=== PATIENT | male | born 1965 | race Caucasian/White ===

== ENCOUNTER 2020-02-29 11:43 | Emergency (ER) | payer MEDICARE, OTHER ==
[~2020-02-29] VITALS: Ht 177.8 cm; Wt 60.0 kg
[~2020-02-29 11:43] MED LIST: DICL50TA2 PO; DIVA500T2 PO; DULO30CA2 PO; GABA-827 PO; HYDR-826 PO; MELO7.5T31 PO; METH500T7 PO; NAPR220C2 PO; OMEP40CA42 PO; OXYC20TA42 PO; POTA10TA11 PO; TAMS-11 PO; TRAZ50TA66 PO
--- NOTE | 2020-02-29 11:48 | NUR ---
PT REFUSED TRIAGE UNTIL HE CAN CALL HIS GIRLFRIEND. PT AMBULATORY TO AND FROM [facility] PHONE W/ STEADY GAIT, LIGHTLY USING CANE. RESP EVEN & UNLABORED, ABLE TO SPEAK IN COMPLETE SENTENCES. RETURNED TO ED ROOM 24 W/OUT INCIDENT.
--- NOTE | 2020-02-29 11:50 | NUR ---
DR DE GUZMAN AT BS FOR EXAM.
[2020-02-29] MEDS ORDERED: BUPR1PAT20 TP (12:18)
[2020-02-29] MEDS ORDERED: SODIUM CHLORIDE FLUSH 10ML SYR IVF ONE (13:00)
[2020-02-29] MEDS ORDERED: KETOROLAC 30 MG/1 ML IVPush ONE (13:00)
[2020-02-29] MEDS ORDERED: DIPHENHYDRAMINE 50 MG/ML, 1ML IVPush ONE (13:00)
[2020-02-29] MEDS ORDERED: METOCLOPRAMIDE 5 MG/ML, 2ML IVPush ONE (13:00)
[2020-02-29] MEDS ORDERED: SODIUM CHLORIDE 0.9% 1,000ML IVBOLUS ONE (13:00)
[2020-02-29] MEDS ORDERED: METOCLOPRAMIDE 5 MG/ML, 2ML ONE (13:27)
[2020-02-29] MEDS ORDERED: DIPHENHYDRAMINE 50 MG/ML, 1ML ONE (13:27)
[2020-02-29] MEDS ORDERED: KETOROLAC 30 MG/1 ML ONE (13:27)
--- NOTE | 2020-02-29 13:34 | NUR ---
BENADRYL, TORADOL AND REGLAN GIVEN PER EMAR; NS BOLUS INFUSING; IV SITE PATENT. PT RESTING QUIETLY ON GURNEY.
[2020-02-29 14:23] VITALS: BP 116/44
== END 2020-02-29 14:54 | disposition home or self-care (01) ==
LOC: ED 12:37
DX: G44.209 Tension-type headache, unspecified, not intractable (principal); M54.2 Cervicalgia; R55 Syncope and collapse; R94.31 Abnormal electrocardiogram [ECG] [EKG]; I10 Essential (primary) hypertension; K21.9 Gastro-esophageal reflux disease without esophagitis
CPT/HCPCS: 70450; 93005; 96361; 96374; 96375; 99284; J1200; J1885; J2765; J7030

== ENCOUNTER 2020-03-29 16:18 | Emergency (ER) | payer MEDICARE ==
[~2020-03-29 16:18] MED LIST changes: +BUPR1PAT20 TP
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
== END 2020-03-29 16:43 ==
LOC: ED 16:37
DX: F32.9 Major depressive disorder, single episode, unspecified (principal); Z53.21 Procedure and treatment not carried out due to patient leaving prior to being seen by health care provider

== ENCOUNTER 2020-10-07 05:36 | Emergency (ER) | payer MEDICARE ==
[~2020-10-07] VITALS: Ht 175.3 cm; Wt 70.0 kg
[~2020-10-07 05:36] MED LIST changes: +METH-639 PO; -METH500T7 PO
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
[2020-10-07] MEDS ORDERED: LORazepam 1MG TABLET PO ONE (06:00)
[2020-10-07] MEDS ORDERED: LORazepam 2 MG/ML, 1ML ONE (06:01)
[2020-10-07] MEDS ORDERED: LORazepam 2 MG/ML, 1ML IM ONE (06:30)
--- NOTE | 2020-10-07 06:42 | NUR ---
PT UA SENT TO LAB, NAD, DENIES ADDITIONAL QUESTIONS AT THIS TIME. VERBALLY INSTRUCTED ON CATH CARE. PROVIDED RESOURCES FOR CATH CARE. TONIE.
[2020-10-07 06:49] VITALS: BP 152/97
--- NOTE | 2020-10-07 06:54 | NUR ---
REPORT TO ELVIA HURTADO, PT CARE TRANSFERRED AT THIS TIME.
[2020-10-07 06:59] LABS: MICROSCOPIC NOT IND
--- NOTE | 2020-10-07 07:06 | NUR ---
PT REC'VD DISCHARGE INSTRUCTIONS AND EDUCATION. PT ADVISED ABOUT FOLLOW UP. PT HAD NO FURTHER QUESTIONS. PT AMBULATED TO DC AREA, STEADY GAIT.
== END 2020-10-07 07:37 | disposition home or self-care (01) ==
LOC: ED 06:16
DX: N40.1 Benign prostatic hyperplasia with lower urinary tract symptoms (principal); R33.8 Other retention of urine
CPT/HCPCS: 51702; 81003; 96372; 99284; J2060

== ENCOUNTER 2020-10-08 07:33 | Emergency (ER) | payer MEDICARE ==
[~2020-10-08] VITALS: Ht 177.8 cm; Wt 66.0 kg
[2020-10-08 07:42] VITALS: BP 130/83
--- NOTE | 2020-10-08 08:55 | NUR ---
PT TO ROOM FROM LOBBY, GAIT STEADY WITH MARIELLA. REYNALDO STEPHENS AT BEDSIDE TO [place] PT.
--- NOTE | 2020-10-08 09:02 | NUR ---
SCHAEFFER REMOVED WITHOUT DIFFICULTY. REVIEWED DC INSTRUCTIONS WITH PT, UNDERSTANDING VERBALIZED. PT LEFT AMB, GAIT STEADY WITH CANE.
== END 2020-10-08 09:07 | disposition home or self-care (01) ==
LOC: ED 08:49
DX: R33.9 Retention of urine, unspecified (principal); F17.210 Nicotine dependence, cigarettes, uncomplicated
CPT/HCPCS: 99281

== ENCOUNTER 2020-11-02 09:34 | Emergency (ER) | payer MEDICARE ==
[~2020-11-02] VITALS: Ht 177.8 cm; Wt 68.9 kg
[2020-11-02 09:37] VITALS: BP 129/89
--- NOTE | 2020-11-02 10:00 | NUR ---
PT PRESENTS TO ED WITH C/O MIDLINE BACK/NECK PAIN. STATES HE HAS "TITANIUM IN BACK" AND HAS HAD MULTPLE SURGERIES. PT A&O, RESPS EVEN AND UNLABORED, VSS, NADN.
--- NOTE | 2020-11-02 10:27 | NUR ---
PT EDUCATED ON DISCHARGE, VERBALIZED UNDERSTANDING, AMBULATORY TO DISCHARGE WITH STEADY GAIT
== END 2020-11-02 10:30 | disposition home or self-care (01) ==
LOC: ED 09:52
DX: M51.16 Intervertebral disc disorders with radiculopathy, lumbar region (principal); I10 Essential (primary) hypertension
CPT/HCPCS: 99283

== ENCOUNTER 2020-11-21 23:38 | Emergency (ER) | payer MEDICARE ==
[~2020-11-21] VITALS: Ht 177.8 cm; Wt 65.0 kg
[~2020-11-21 23:38] MED LIST changes: -OMEP40CA42 PO; +OMEP40CA8 PO
[2020-11-22] MEDS ORDERED: LIDOCAINE 2%,20 ML JEL.PF.APP MM ONE ×2 (00:01)
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
[2020-11-22 01:18] VITALS: BP 134/78
== END 2020-11-22 01:21 | disposition home or self-care (01) ==
LOC: ED 11-22 01:00
DX: R33.0 Drug induced retention of urine (principal); F15.129 Other stimulant abuse with intoxication, unspecified; Z72.9 Problem related to lifestyle, unspecified; K21.9 Gastro-esophageal reflux disease without esophagitis; F17.200 Nicotine dependence, unspecified, uncomplicated
CPT/HCPCS: 51702; 99284

== ENCOUNTER 2020-11-24 22:50 | Emergency (ER) | payer MEDICARE ==
[~2020-11-24] VITALS: Ht 162.6 cm; Wt 70.0 kg
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
--- NOTE | 2020-11-24 23:36 | NUR ---
PT ABLE TO VOID, PT VOIDED A TOTAL OF 500 MLS IN THE URINAL, PT STATES HE FEELS MUCH BETTER NOW AND WOULD LIKE TO GO HOME
[2020-11-24 23:41] VITALS: BP 136/63
== END 2020-11-24 23:44 | disposition home or self-care (01) ==
LOC: ED 23:16
DX: N40.1 Benign prostatic hyperplasia with lower urinary tract symptoms (principal); R33.8 Other retention of urine; F15.129 Other stimulant abuse with intoxication, unspecified; Z72.9 Problem related to lifestyle, unspecified; I10 Essential (primary) hypertension; K21.9 Gastro-esophageal reflux disease without esophagitis; F17.200 Nicotine dependence, unspecified, uncomplicated
CPT/HCPCS: 99283

== ENCOUNTER 2020-11-25 04:36 | Emergency (ER) | payer MEDICARE ==
[~2020-11-25] VITALS: Ht 177.8 cm; Wt 70.0 kg
[2020-11-25 04:38] VITALS: BP 138/88
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
--- NOTE | 2020-11-25 05:24 | NUR ---
STRAIGHT CATH PT, PT TOLERATED PROCEDURE WELL. PT STATES 'I FEEL LIKE A BRAND NEW MAN'
[2020-11-25 05:29] LABS: MICROSCOPIC NOT IND
--- NOTE | 2020-11-25 06:29 | NUR ---
Patient/Caregiver given discharge instructions and they have confirmed that they understand the instructions. Patient ambulatory with steady gait.
--- NOTE | 2020-11-25 06:30 | NUR ---
PT REFUSED VITALS
== END 2020-11-25 06:33 | disposition home or self-care (01) ==
LOC: ED 05:01
DX: R33.9 Retention of urine, unspecified (principal); I10 Essential (primary) hypertension; K21.9 Gastro-esophageal reflux disease without esophagitis
CPT/HCPCS: 81003; 99283

== ENCOUNTER 2020-12-24 21:46 | Emergency (ER) | payer MEDICARE ==
--- NOTE | 2020-12-24 23:00 | NUR ---
BLADDER SCAN OF 750ML- ERP MADE AWARE TO GATHER SCHAEFFER SUPPLIES
[2020-12-24] MEDS ORDERED: LIDOCAINE 2%,20 ML JEL.PF.APP MM ONE ×2 (23:10→23:30)
--- NOTE | 2020-12-24 23:12 | NUR ---
Pt in a lot of pain, pacing back and forth says hes going to leave. Encouraged pt to deep breath that anderson is on the way, directed back to bed. 2310: Anderson being placed
--- NOTE | 2020-12-24 23:20 | NUR ---
REPORT FROM SERGIO HURTADO
--- NOTE | 2020-12-24 23:25 | NUR ---
TASK RN: 17F SCHAEFFER CATH PLACED, STERILE UA OBTAINED
[2020-12-24 23:53] LABS: ALANINE AMINOTRANSFERASE 29 U/L (12-78); ANION GAP 5 mmol/L (5-15); CALCIUM 9.5 mg/dL (8.5-10.1); CHLORIDE 107 mmol/L (98-107)
[2020-12-24 23:56] LABS: ALKALINE PHOSPHATASE 79 U/L (45-117); BILIRUBIN,TOTAL 0.4 mg/dL (0.2-1.0); TOTAL PROTEIN 7.5 g/dL (6.4-8.2)
[2020-12-25] MEDS ORDERED: HYDROcodone/APAP 5/325 TABLET PO ONE
[2020-12-25 00:03] LABS: BASOPHILS % (AUTO) 0 % (0-1); EOSINOPHILS % (AUTO) 2 % (1-7); LYMPHOCYTES % (AUTO) 22 % (22-44); MEAN CORPUSCULAR HEMOGLOBIN 33.1 pg (27.5-34.5); MEAN CORPUSCULAR HGB CONC 34.2 g/dL (33.2-36.2); MEAN PLATELET VOLUME 7.9 fL (7.4-10.4); MONOCYTES % (AUTO) 9 % (2-9); NEUTROPHILS % (AUTO) 67 % (42-75); PLATELET COUNT 275 x10^3/uL (130-400); RED BLOOD COUNT 4.22 x10^6/uL (4.38-5.82)
[2020-12-25] MEDS ORDERED: HYDROcodone/APAP 5/325 TABLET ONE (00:06)
[2020-12-25 00:08] LABS: MICROSCOPIC NOT IND
[2020-12-25 01:34] VITALS: BP 134/83
== END 2020-12-25 01:36 | disposition home or self-care (01) ==
LOC: ED 22:58
DX: R33.9 Retention of urine, unspecified (principal); I10 Essential (primary) hypertension; K21.9 Gastro-esophageal reflux disease without esophagitis
CPT/HCPCS: 36415; 51702; 80053; 81003; 85025; 99284